=== PATIENT | male | born 1995 | race Caucasian/White ===

== ENCOUNTER 2016-06-06 11:14 | Emergency (ER) | payer MEDICAID, OTHER ==
[~2016-06-06] VITALS: Wt 71.5 kg
[2016-06-06] MEDS ORDERED: DIPHTH/TET/ACEL PERTUSS (ADULT) 0.5 ML VIAL IM* ONE (15:00)
--- NOTE | 2016-06-06 15:14 | ERD ---
ER Documentation Chief Complaint Date/Time DATE: 06/06/16 TIME: 15:11 Chief Complaint RIGHT FOOT PAIN FROM PUNCTURE WOUND . SWELLING NO ACTIVE BLEEDING HPI This a 20-year-old male who presents to the emergency department today complaining of some right foot pain after stepping on a nail at his worksite yesterday. 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 States he has not taken any medication for the pain. States he is unsure when his last tetanus shot was. Denies any fevers or chills. ROS All systems reviewed and are negative except as per history of present illness. Medications Home Meds Active Scripts Ciprofloxacin Hcl* (Ciprofloxacin Hcl*) 500 Mg Tablet, 500 MG PO BID for 10 Days , TAB Prov:BRIAN GORDON PA-C 06/06/16 Naproxen* (Naprosyn*) 500 Mg Tablet, 500 MG PO BID Y for PAIN AND/OR INFLAMMATION, #30 TAB Prov:BRIAN GORDON PA-C 06/06/16 Allergies Allergies: Coded Allergies: No Known Allergy (Unverified , 06/06/16) PMhx/Soc Medical and Surgical Hx: pt denies Medical Hx, pt denies Surgical Hx Hx Alcohol Use: No Hx Substance Use: No Hx Tobacco Use: No Physical Exam Vitals Vital Signs Date Time Temp Pulse Resp B/P Pulse Ox O2 Delivery O2 Flow Rate FiO2 06/06/16 11:18 98.8 69 20 130/82 97 Physical Exam Const: No acute distress Head: Atraumatic Eyes: Normal Conjunctiva ENT: Normal External Ears, Nose and Mouth. Neck: Full range of motion..~ No meningismus. Resp: Clear to auscultation bilaterally Cardio: Regular rate and rhythm, no murmurs Abd: Soft, non tender, non distended. Normal bowel sounds Skin: No petechiae or rashes MSK: Right foot with no obvious deformity. Mild swelling around area of puncture wound with evidence of puncture wound. No evidence of foreign body. No erythema or warmth. Pulses 2+. Distal neurovascularly intact. Neur: Awake and alert Psych: Normal Mood and Affect Results 24 hrs Current Medications Medications (Trade) Dose Ordered Sig/Amalia Route PRN Reason Start Time Stop Time Status Last Admin Dose Admin Diphtheria/ Tetanus/Acell Pertussis (Adacel) 0.5 ml ONCE ONCE IM* 06/06/16 15:00 06/06/16 15:01 DC DIAGNOSTIC IMAGING REPORT Patient: PETERSON TODD : 1995 Age: 20 Sex: M MR #: [id number] DOS: 06/06/16 0000 Ordering MD: BRIAN GORDON PA-C Location: [facility] Room/Bed: PROCEDURE: XR right foot. CLINICAL INDICATION: Stepped on nail, evaluate remaining foreign body. TECHNIQUE: Three views of the right foot were obtained. COMPARISON: No prior studies are available for comparison. FINDINGS: There is no acute fracture or dislocation. The metatarsals are in alignment with the cuneiforms. The joint spaces are maintained. The soft tissues are unremarkable. There is no visualized radiopaque foreign body. RPTAT: ZZ IMPRESSION: No visualized radiopaque foreign body. No acute fracture. .Mattie Morejon MD, MD Date Time Electronically viewed and signed by .Mattie Morejon MD, MD on 06/06/2016 15: 16 .T/ CC: BRIAN GORDON PA-C Procedures/MDM Is a 20-year-old male who presents to the emergency department today complaining of right foot pain after stepping on a nail at his work site yesterday. Given there was trauma patient was complaining of some pain I did obtain images to rule out retained foreign body. Per the radiology report images of the right foot are unremarkable. There is no acute fracture dislocation. Metatarsals and alignment with the cuneiforms. Joint spaces are maintained. Soft tissues are unremarkable. There is no visualized radiopaque foreign body . Patient symptoms at this time is consistent with puncture wound. He is afebrile and otherwise well-appearing. Low suspicion for sepsis, cellulitis, deep space infection. Patient was unclear of his tetanus status and he was therefore given a tetanus vaccine here in the emergency department. Patient's wound was also cleaned here in the emergency department. He will be given a prescription for Cipro. Patient declined crutches here in the emergency department. He was instructed not to do any running or jumping exercises while on the Cipro. Patient understood. At this time the patient is stable for discharge and outpatient management. Patient should follow up with their PCP in the next 1-2 days. They may return to the emergency department sooner for any persistent or worsening of symptoms. Patient understood and agreed with the plan. Discussed the patient with Dr Ross and he is in agreement with the plan. Departure Diagnosis: Primary Impression: Puncture wound Condition: Fair BRIAN GORDON PA-C Jun 06, 2016 15:14
--- NOTE | 2016-06-06 15:17 | RADRPT ---
PROCEDURE: XR right foot. CLINICAL INDICATION: Stepped on nail, evaluate remaining foreign body. TECHNIQUE: Three views of the right foot were obtained. COMPARISON: No prior studies are available for comparison. FINDINGS: There is no acute fracture or dislocation. The metatarsals are in alignment with the cuneiforms. Th e joint spaces are maintained. The soft tissues are unremarkable. There is no visualized radiopaque foreign body. RPTAT: ZZ IMPRESSION: No visualized radiopaque foreign body. No acute fracture. .Mattie Morejon MD, MD Date Time Electronically viewed and signed by .Mattie Morejon MD, on 06/06/2016 15:16 .T/
[2016-06-06] MEDS ORDERED: CIPR500T4 PO (15:29)
[2016-06-06] MEDS ORDERED: NAPR-260 PO (15:29)
[2016-06-06 16:03] VITALS: BP 131/82; PULSE 68; RESP 20; TEMP 98.9
== END 2016-06-06 16:03 | disposition home or self-care (01) ==
LOC: FTE 11:14
DX: S91.331A Puncture wound without foreign body, right foot, initial encounter (principal); W45.0XXA Nail entering through skin, initial encounter; Y92.89 Other specified places as the place of occurrence of the external cause; Z23 Encounter for immunization
CPT/HCPCS: 73630; 90471; 90715

== ENCOUNTER 2017-09-26 16:43 | Emergency (ER) | END 2017-09-26 18:49 | disposition home or self-care (01) ==